=== PATIENT | female | born 2000 | race American Indian/Alaskan Native ===

== ENCOUNTER 2021-07-21 08:33 | Emergency (ER) | payer MEDICAID, OTHER ==
[2021-07-21 09:07] VITALS: BP 126/87
--- NOTE | 2021-07-21 09:08 | Emergency Department Report ---
ED ENT HPI - General Chief complaint: Dental/Oral Stated complaint: TOOTHACHE Time Seen by Provider: 07/21/21 09:06 Source: patient Mode of arrival: Ambulatory Limitations: No Limitations - History of Present Illness Initial comments: Patient presents secondary to dental pain and facial pain. For months she has had intermittent pain in the left mandible area and maxillary area. She has had no fevers or chills previously. She came in today because that she has had worsening pain and persistent pain for the last 2 days. This time, the pain has not resolved. She has not been on antibiotics. She has taken Tylenol and ibuprofen [id number] without symptomatic improvement. She has not chosen to see a dentist in the months that she has been having these problems. She does report that her teeth have been temperature sensitive of late. There is no trauma. She did not bite into anything or chipped a tooth. She has no cough or congestion. She has no blurred vision or double vision. There is no auditory change. Pain is constant and aching. - Related Data Previous Rx's Medication Instructions Recorded Last Taken Type Acetaminophen/Codeine [Tylenol 1 tab PO Q6H PRN #8 tab 07/21/21 Unknown Rx /Codeine # 3 tab] Penicillin V Potassium 500 mg PO 4XD #28 tab 07/21/21 Unknown Rx Allergies Allergy/AdvReac Type Severity Reaction Status Date / Time No Known Allergies Allergy Verified 01/09/15 00:12 ED Dental HPI - General Chief complaint: Dental/Oral Stated complaint: TOOTHACHE Time Seen by Provider: 07/21/21 09:06 Source: patient Mode of arrival: Ambulatory Limitations: No Limitations - Related Data Previous Rx's Medication Instructions Recorded Last Taken Type Acetaminophen/Codeine [Tylenol 1 tab PO Q6H PRN #8 tab 07/21/21 Unknown Rx /Codeine # 3 tab] Penicillin V Potassium 500 mg PO 4XD #28 tab 07/21/21 Unknown Rx Allergies Allergy/AdvReac Type Severity Reaction Status Date / Time No Known Allergies Allergy Verified 01/09/15 00:12 ED Review of Systems ROS: Stated complaint: TOOTHACHE Other details as noted in HPI Comment: All other systems reviewed and negative Constitutional: denies: fever Eyes: denies: eye pain ENT: as per HPI. denies: throat pain Respiratory: denies: cough Cardiovascular: denies: chest pain Endocrine: denies: unexplained weight loss Gastrointestinal: denies: abdominal pain Genitourinary: denies: dysuria Musculoskeletal: denies: back pain Skin: denies: rash Neurological: denies: headache Hematological/Lymphatic: denies: easy bruising ED Past Medical Hx - Past Medical History Previous Medical History?: No - Family History Family history: no significant - Social History Smoking Status: Never Smoker Substance Use Type: None - Medications Home Medications: Home Medications Medication Instructions Recorded Confirmed Last Taken Type Acetaminophen/Codeine [Tylenol 1 tab PO Q6H PRN #8 tab 07/21/21 Unknown Rx /Codeine # 3 tab] Penicillin V Potassium 500 mg PO 4XD #28 tab 07/21/21 Unknown Rx ED Physical Exam - General Limitations: No Limitations, Other (Pulse ox noted and normal) General appearance: alert, in no apparent distress - Head Head exam: Present: atraumatic, normocephalic, other (No facial edema) - Eye Eye exam: Present: normal appearance, PERRL, EOMI. Absent: scleral icterus - ENT ENT exam: Present: mucous membranes moist, normal external ear exam, other (Patient has dental caries noted with palpation of the left upper second molar. This tooth is tender to palpation and percussion. There is no gingival erythema or edema.) - Neck Neck exam: Present: normal inspection. Absent: lymphadenopathy - Respiratory Respiratory exam: Present: normal lung sounds bilaterally. Absent: respiratory distress - Cardiovascular Cardiovascular Exam: Present: regular rate, normal rhythm - Extremities Exam Extremities exam: Present: normal capillary refill - Back Exam Back exam: Present: full ROM - Neurological Exam Neurological exam: Present: alert, oriented X3, CN II-XII intact, normal gait - Psychiatric Psychiatric exam: Present: normal affect, normal mood - Skin Skin exam: Present: warm, dry ED Course Vital Signs 07/21/21 09:05 Temperature 98.2 F Pulse Rate 73 Respiratory 16 Rate Blood Pressure 126/87 O2 Sat by Pulse 100 Oximetry - Reevaluation(s) Reevaluation #1: 07/21/21 13:30 Patient was discharged ED Medical Decision Making - Medical Decision Making Patient presents with intermittent dentalgia and now worsening pain with facial pain. There is no evidence of buccal abscess or cellulitis. She does not have evidence of gingivitis. She likely has an apical alveolar abscess and will need a root canal. She has been informed of such. Antibiotics were started empirically and the patient was given analgesics. She was told to see a dentist as soon as possible. Critical Care Time: No Critical care attestation.: If time is entered above; I have spent that time in minutes in the direct care of this critically ill patient, excluding procedure time. ED Disposition Clinical Impression: Apical alveolar abscess Disposition: HOME / SELF CARE / HOMELESS Is pt being admited?: No Condition: Stable Instructions: Dental Abscess Additional Instructions: SEE A DENTIST. RETURN FOR PROBLEMS. TAKE ALL OF THE ANTIBIOTICS. Prescriptions: Penicillin V Potassium 500 mg PO 4XD #28 tab Acetaminophen/Codeine [Tylenol /Codeine # 3 tab] 1 tab PO Q6H PRN #8 tab PRN Reason: Pain , Severe (7-10) Referrals: PRIMARY CAREMD [Referring] - 3-5 Days BRITTNI JULIEN MD [Staff Physician] - 3-5 Days
== END 2021-07-21 09:33 | disposition home or self-care (01) ==
LOC: ED 08:33
DX: K04.7 Periapical abscess without sinus (principal)
CPT/HCPCS: 99282